=== PATIENT | male | born 1960 | race Caucasian/White ===

== ENCOUNTER → 2021-05-09 | Outpatient (CLI) | payer BC ==
[2015-01-22 17:55] VITALS: BP 142/86
[~2021-05-09] MED LIST: OMEP20CA16 PO
--- NOTE | 2021-05-09 16:46 | KCIC ---
Examination: MRI of the right knee without contrast HISTORY: History of right knee pain, history of lateral knee strain Comparison: None available Technique: Multiplanar, multisequence MR imaging of the right knee was performed without contrast FINDINGS: The anterior cruciate ligament, posterior cruciate ligament appear intact. There is increased T2 sign al identified about the posterior capsule. There is increased signal identified in the superior aspec t of the posterior horn of the medial meniscus likely tear. There is mild increased signal identified in the posterior root of the lateral meniscus. The medial collateral ligament appears intact. The la teral collateral ligamentous complex including the fibular collateral ligament, biceps femoris tendon , popliteus tendon appears intact. The extensor mechanism is intact. There is deep fissuring of carti sarah identified in the medial compartment. There is faint fraying of cartilage identified in the late ral, patellofemoral compartments. Trace popliteal cyst Mild joint space loss medial, lateral compartment femoral compartments IMPRESSION: 1. Tear of the posterior horn of the medial meniscus. 2. Mild increased signal in the posterior root lateral meniscus could be secondary to injury or subt le tear. 3. Increased T2 signal identified about the posterior capsular could be mild sprain. 4. Mild tricompartmental degenerative changes most in the medial compartment. 5. Trace popliteal cyst. Electronically signed by: Andre Newman MD (05/09/2021 4:44 PM) [id number]
== END ==
LOC: KCIC MRI 15:02
PROVIDERS: ATTEND Family Medicine
DX: S83.241A Other tear of medial meniscus, current injury, right knee, initial encounter (principal); M17.11 Unilateral primary osteoarthritis, right knee; M25.861 Other specified joint disorders, right knee; X58.XXXA Exposure to other specified factors, initial encounter; Y93.89 Activity, other specified; Y92.89 Other specified places as the place of occurrence of the external cause; Y99.8 Other external cause status
CPT/HCPCS: 73721